=== PATIENT | male | born 1975 | race Caucasian/White ===

== ENCOUNTER 2019-04-20 14:47 | Emergency (ER) | payer OTHER ==
[~2019-04-20] VITALS: Ht 172.7 cm; Wt 100.0 kg
--- NOTE | 2019-04-20 15:29 | ED Upper Extremity ---
General Chief Complaint: Upper Extremity Stated Complaint: FALL LEFT ARM/SHOULDER/WRIST PAIN Nursing Triage Note: PT AMB TO TRIAGE WITH COMPLAINT OF LEFT SHOULDER AND ARM PAIN. STATES AT WORK HE FELL DOWN 4 STAIRS LANDING ON LEFT SIDE. DENIES HITTING HEAD OR LOC. Nursing Sepsis Screen: No Definite Risk Source: patient Exam Limitations: no limitations History of Present Illness Date Seen by Provider: Apr 20, 2019 Time Seen by Provider: 15:20 Initial Comments 43-year-old male that presents to the emergency department with left forearm and left wrist pain. Patient reports that he fell while working today after some stairs gave out on him about 12:00 this afternoon. Patient reports taken 2 Aleve at 12:30 that has improved his pain mildly. Patient reports that his left shoulder is a little sore but has free range of motion without increased pain and no abnormalities noted. Patient denies hitting his head or having loss of consciousness, patient denies having vision problems, neck pain, shortness of breath, nausea or vomiting. Onset: this afternoon Severity: mild Pain/Injury Location: left forearm Method of Injury: fell Modifying Factors: Improves With Immobilization; Worse With Movement; Improves With Pain Medication, Improves With Rest Allergies and Home Medications Allergies Coded Allergies: No Known Drug Allergies (Unverified , 04/20/19) Patient Home Medication List Home Medication List Reviewed: Yes Review of Systems Constitutional: no symptoms reported, see HPI EENTM: see HPI, no symptoms reported Respiratory: no symptoms reported, see HPI Cardiovascular: no symptoms reported, see HPI Gastrointestinal: no symptoms reported, see HPI Genitourinary: no symptoms reported, see HPI Musculoskeletal: other (left forearm and wrist pain) Skin: no symptoms reported, see HPI Psychiatric/Neurological: No Symptoms Reported, See HPI All Other Systems Reviewed Negative Unless Noted: Yes Past Dwlyvrt-Eekmno-Gpezlr Hx Past Med/Social Hx: Reviewed Nursing Past Med/Soc Hx Patient Social History Alcohol Use: Occasionally Uses Recreational Drug Use: No Type Used: Smokeless Tobacco Recent Foreign Travel: No Contact w/Someone Who Travel: No Recent Infectious Disease Expo: No Recent Hopitalizations: No Physical Abuse: No Sexual Abuse: No Mistreated: No Fear: No Immunizations Up To Date Tetanus Booster (TDap): Unknown PED Vaccines UTD: Yes Seasonal Allergies Seasonal Allergies: No Past Medical History Surgeries: Yes (CYST REMOVAL) Respiratory: No Cardiac: No Neurological: No Genitourinary: No Gastrointestinal: Yes Gastroesophageal Reflux Musculoskeletal: No Endocrine: No Cancer: No Psychosocial: No Integumentary: No Blood Disorders: No Physical Exam Vital Signs Vital Signs - First Documented 04/20/19 15:00 Temp 36.5 Pulse 81 Resp 20 B/P (MAP) 161/91 (114) Pulse Ox 98 O2 Delivery Room Air Capillary Refill : Less Than 3 Seconds Height, Weight, BMI Height: '" Weight: lbs. oz. kg; 33.00 BMI Method: General Appearance: WD/WN, no apparent distress HEENT: PERRL/EOMI, normal ENT inspection, TMs normal, pharynx normal Neck: non-tender, full range of motion, supple, normal inspection Cardiovascular: normal peripheral pulses, regular rate, rhythm, no edema, no gallop, no JVD, no murmur Respiratory: chest non-tender, lungs clear, normal breath sounds, no respiratory distress, no accessory muscle use Gastrointestinal: normal bowel sounds, non tender, soft, no pulsatile mass Back: normal inspection, no CVA tenderness, no vertebral tenderness Shoulder: normal inspection, non-tender, no evidence of injury, normal ROM Elbow/Forearm: normal inspection, non-tender (left forearm is tender, left elbow is nontender) Wrist: Yes normal inspection; No non-tender; Yes soft tissue tenderness Hand: normal inspection, non-tender Neurologic/Tendon: normal sensation, normal motor functions Neurologic/Psychiatric: lead blender II-XII nml as tested, no motor/sensory deficits, alert, normal mood/affect, oriented x 3 Skin: normal color, warm/dry Lymphatic: no adenopathy Progress/Results/Core Measures Results/Orders My Orders Orders - ROSSY MAXWELL Forearm, Left, 2 Views (04/20/19 15:21) Wrist, Left, 3 Views Or More (04/20/19 15:21) Vital Signs/I&O 04/20/19 04/20/19 15:00 16:01 Temp 36.5 36.5 Pulse 81 81 Resp 20 20 B/P (MAP) 161/91 (114) 145/90 (114) Pulse Ox 98 98 O2 Delivery Room Air Blood Pressure Mean: 114 POS Diagnostic Imaging Diagonstic Imaging: Xray Plain Films/CT/US/NM/MRI: forearm, other (wrist) Comments NAME: EMMETT SALDANA MED REC#: [id number] PT STATUS: REG ER : 1975 PHYSICIAN: ROSSY MAXWELL ADMIT DATE: 04/20/19/ER Draft POSDate of Exam:04/20/19 FOREARM, LEFT, 2 VIEWS INDICATION: Fall with left forearm pain. AP and lateral views of the left forearm are obtained. No fracture or acute bony abnormality is seen. IMPRESSION: Negative left forearm. Dictated on workstation # [id number] Dict: 04/20/19 1538 Trans: 04/20/19 1540 [id number] Interpreted by: TOBIAS DOWNING MD Electronically signed by: NAME: EMMETT SALDANA [facility] REC#: [id number] PT STATUS: REG ER : 1975 PHYSICIAN: ROSSY MAXWELL ADMIT DATE: 04/20/19/ER Draft POSDate of Exam:04/20/19 WRIST, LEFT, 3 VIEWS OR MORE INDICATION: Fall with left wrist pain. AP, oblique, and lateral views of the left wrist are obtained. FINDINGS: No fracture or acute bony abnormality is seen. Joint spaces appear unremarkable. IMPRESSION: Negative left wrist. Dictated on workstation # [id number] Dict: 04/20/19 1537 Trans: 04/20/19 1540 [id number] Interpreted by: TOBIAS DOWNING MD Electronically signed by: Reviewed: Reviewed by Me Departure Impression Primary Impression: Contusion of wrist Qualified Codes: S60.212A - Contusion of left wrist, initial encounter Additional Impression: Left forearm pain Disposition: 01 HOME, SELF-CARE Condition: Improved Departure-Patient Inst. Decision time for Depature: 15:50 Referrals: NO,LOCAL PHYSICIAN (PCP/Family) Primary Care Physician Patient Instructions: Wrist Sprain (DC) Add. Discharge Instructions: Tylenol up to 1000 mg every 8 hours and ibuprofen 600 mg every 8 hours for pain. You may use ice to the areas of pain for 20 minute intervals. Follow-up with primary care provider or occupational health if not better in 7- 10 days Return for any emergent concerns. All discharge instructions reviewed with patient and/or family. Voiced understanding. ROSSY MAXWELL Apr 20, 2019 15:29 POS
--- NOTE | 2019-04-20 15:40 | Diagnostic Imaging Report ---
INDICATION: Fall with left forearm pain. AP and lateral views of the left forearm are obtained. No fracture or acute bony abnormality is seen. IMPRESSION: Negative left forearm. Dictated by: Dictated on workstation # [id number]
--- NOTE | 2019-04-20 15:40 | Diagnostic Imaging Report ---
INDICATION: Fall with left wrist pain. AP, oblique, and lateral views of the left wrist are obtained. FINDINGS: No fracture or acute bony abnormality is seen. Joint spaces appear unremarkable. IMPRESSION: Negative left wrist. Dictated by: Dictated on workstation # [id number]
[2019-04-20 16:01] VITALS: BP 145/90
== END 2019-04-20 16:01 | disposition home or self-care (01) ==
LOC: EDUNIT# 14:47 → ER 14:52
DX: S60.212A Contusion of left wrist, initial encounter (principal); K21.9 Gastro-esophageal reflux disease without esophagitis; W10.9XXA Fall (on) (from) unspecified stairs and steps, initial encounter; Y92.59 Other trade areas as the place of occurrence of the external cause
CPT/HCPCS: 73090; 73110

== ENCOUNTER 2020-01-11 14:01 | Emergency (ER) | payer SELFPAY ==
[~2020-01-11] VITALS: Ht 170 cm; Wt 109.3 kg
--- NOTE | 2020-01-11 14:09 | ED Chest Pain ---
General Stated Complaint: SOA;CHEST PAIN Source: patient Exam Limitations: no limitations History of Present Illness Date Seen by Provider: Jan 11, 2020 Time Seen by Provider: 14:09 Initial Comments 44-year-old male presents with parasternal chest pain. He reports that it started around 7:00 this morning. He gets worse if he bends forward or moves his arm. Patient reports his been constant but has eased up some. Patient reports he is on a tractor when it happened. Patient thinks he has a pulled muscle but his coworkers were concerned about a possible heart attack. He was given an aspirin. Patient was then sent to the ER for further evaluation. He denies any nausea vomiting diaphoresis. Patient is tender across his chest on palpation. Patient does not report any radiation of the pain. Allergies and Home Medications Allergies Coded Allergies: Penicillins (Verified Allergy, Unknown, 01/11/20) Home Medications No Active Prescriptions or Reported Meds Patient Home Medication List Home Medication List Reviewed: Yes Review of Systems Review of Systems Constitutional: No chills, No fever EENTM: No Symptoms Reported Respiratory: Denies Cough, Denies Shortness of Air, Denies SOA With Exertion, Denies SOA at Rest, Denies Wheezing Cardiovascular: Chest Pain; Denies Edema, Denies Lightheadedness, Denies Palpitations, Denies Syncope Gastrointestinal: Denies Abdominal Pain, Denies Diarrhea, Denies Nausea, Denies Vomiting Musculoskeletal: see HPI Skin: no symptoms reported Psychiatric/Neurological: No Symptoms Reported Endocrine: No Symptoms Reported Past Eyhpszp-Bmuifp-Jbliqg Hx Past Med/Social Hx: Reviewed Nursing Past Med/Soc Hx Patient Social History Type Used: Smokeless Tobacco Recent Foreign Travel: No Contact w/Someone Who Travel: No Recent Hopitalizations: No Immunizations Up To Date Tetanus Booster (TDap): Unknown PED Vaccines UTD: Yes Seasonal Allergies Seasonal Allergies: No Past Medical History Surgeries: Yes (CYST REMOVAL) Respiratory: No Cardiac: No Neurological: No Genitourinary: No Gastrointestinal: Yes Gastroesophageal Reflux Musculoskeletal: No Endocrine: No Cancer: No Psychosocial: No Integumentary: No Blood Disorders: No Physical Exam Vital Signs Vital Signs - First Documented 01/11/20 14:17 Temp 36.9 Pulse 87 Resp 16 B/P (MAP) 152/95 (114) Pulse Ox 96 O2 Delivery Room Air Capillary Refill : Height, Weight, BMI Height: '" Weight: lbs. oz. kg; 33.00 BMI Method: General Appearance: No Apparent Distress, WD/WN HEENT: PERRL/EOMI Neck: Full Range of Motion, Non Tender Respiratory: Chest Non Tender, Lungs Clear, Normal Breath Sounds, Other (tenderness to chest wall with palpation parasternally bilateral) Cardiovascular: Regular Rate, Rhythm, No Edema Gastrointestinal: Non Tender, Soft Neurologic/Psychiatric: Alert, Oriented x3, Normal Mood/Affect, heel stainer II-XII Norm as Tested Skin: Normal Color, Warm/Dry Progress/Results/Core Measures Results/Orders Lab Results Laboratory Tests Test 01/11/20 14:11 Range/Units White Blood Count 8.1 4.3-11.0 10^3/uL Red Blood Count 5.53 4.35-5.85 10^6/uL Hemoglobin 16.3 13.3-17.7 G/DL Hematocrit 47 40-54 % Mean Corpuscular Volume 85 80-99 FL Mean Corpuscular Hemoglobin 30 25-34 PG Mean Corpuscular Hemoglobin Concent 35 32-36 G/DL Red Cell Distribution Width 13.3 10.0-14.5 % Platelet Count 286 130-400 10^3/uL Mean Platelet Volume 11.6 H 7.4-10.4 FL Neutrophils (%) (Auto) 66 42-75 % Lymphocytes (%) (Auto) 24 12-44 % Monocytes (%) (Auto) 8 0-12 % Eosinophils (%) (Auto) 2 0-10 % Basophils (%) (Auto) 0 0-10 % Neutrophils # (Auto) 5.3 1.8-7.8 X 10^3 Lymphocytes # (Auto) 1.9 1.0-4.0 X 10^3 Monocytes # (Auto) 0.7 0.0-1.0 X 10^3 Eosinophils # (Auto) 0.1 0.0-0.3 10^3/uL Basophils # (Auto) 0.0 0.0-0.1 10^3/uL Prothrombin Time 12.9 12.2-14.7 SEC INR Comment 0.9 0.8-1.4 Activated Partial Thromboplast Time 29 24-35 SEC Sodium Level 139 135-145 MMOL/L Potassium Level 4.2 3.6-5.0 MMOL/L Chloride Level 106 98-107 MMOL/L Carbon Dioxide Level 24 21-32 MMOL/L Anion Gap 9 5-14 MMOL/L Blood Urea Nitrogen 8 7-18 MG/DL Creatinine 1.02 0.60-1.30 MG/DL Estimat Glomerular Filtration Rate > 60 BUN/Creatinine Ratio 8 Glucose Level 90 70-105 MG/DL Calcium Level 9.3 8.5-10.1 MG/DL Corrected Calcium 8.5-10.1 MG/DL Magnesium Level 2.3 1.6-2.4 MG/DL Total Bilirubin 0.5 0.1-1.0 MG/DL Aspartate Amino Transf (AST/SGOT) 31 5-34 U/L Alanine Aminotransferase (ALT/SGPT) 51 0-55 U/L Alkaline Phosphatase 47 40-136 U/L Myoglobin 33.0 10.0-92.0 NG/ML Troponin I < 0.028 <0.028 NG/ML B-Type Natriuretic Peptide < 10.0 <100.0 PG/ML Total Protein 8.1 6.4-8.2 GM/DL Albumin 4.6 H 3.2-4.5 GM/DL My Orders Orders - WRIGHT,NINA L DO Cbc With Automated Diff (01/11/20 14:09) Magnesium (01/11/20 14:09) Chest 1 View, Ap/Pa Only (01/11/20 14:09) Ekg Tracing (01/11/20 14:09) Comprehensive Metabolic Panel (01/11/20 14:09) Myoglobin Serum (01/11/20 14:09) Protime With Inr (01/11/20 14:09) Partial Thromboplastin Time (01/11/20 14:09) O2 (01/11/20 14:09) Monitor-Rhythm Ecg Trace Only (01/11/20 14:09) Ed Iv/Invasive Line Start (01/11/20 14:09) BNP (01/11/20 14:09) Troponin I (01/11/20 14:09) Ketorolac Injection (Toradol Injection) (01/11/20 14:10) Vital Signs/I&O 01/11/20 01/11/20 14:17 14:17 Temp 36.9 Pulse 87 Resp 16 B/P (MAP) 152/95 (114) Pulse Ox 96 O2 Delivery Room Air Progress Progress Note : Time: 15:16 Progress Note Patient with negative EKG labs and negative troponin. Patient is chest pain started at 7 AM so finally 7 hours after chest pain started with no chest troponin change or EKG changes. Patient symptoms are very consistent with a musculoskeletal pain getting worse with movement palpation. Patient is asking to be discharged home. He has not felt his heart and is only here to appease his work. Patient is discharged home in stable condition Initial ECG Impression Date: Jan 11, 2020 Initial ECG Impression Time: 15:16 Initial ECG Rate: 86 Initial ECG Rhythm: Normal Sinus Initial ECG Intervals: Normal Initial ECG Impression: Normal Diagnostic Imaging Diagonstic Imaging: Xray Plain Films/CT/US/NM/MRI: chest Comments [facility] [place] [place] NAME: EMMETT SALDANA MED REC#: [id number] PT STATUS: REG ER : 1975 PHYSICIAN: NINA WRIGHT DO ADMIT DATE: 01/11/20/ER Draft Date of Exam:01/11/20 CHEST 1 VIEW, AP/PA ONLY INDICATION: Chest pain and dyspnea TECHNIQUE: Single AP view of the chest is obtained. COMPARISON: No previous study is available for comparison at this time. FINDINGS: Heart size and pulmonary vasculature are within normal limits, and the lungs are clear, bilaterally. IMPRESSION: Unremarkable chest. Departure Impression Primary Impression: Chest wall pain Disposition: 01 HOME, SELF-CARE Condition: Stable Departure-Patient Inst. Referrals: NO,LOCAL PHYSICIAN (PCP/Family) Primary Care Physician Patient Instructions: Chest Pain That Is Not Caused by the Heart (DC) Add. Discharge Instructions: Follow-up with your primary care provider in a couple days for recheck in today symptoms and possible cardiology consult if they feel warranted Tylenol or ibuprofen as needed for pain 4% topical lidocaine with menthol as directed on package as needed for pain Scripts No Active Prescriptions or Reported Meds NINA WRIGHT DO Jan 11, 2020 14:09
[2020-01-11] MEDS ORDERED: KETOROLAC 30 MG/ML VIAL IVP STA (14:10)
[2020-01-11 14:20] LABS: BASOPHILS % (AUTO) 0 % (0-10); EOSINOPHILS # (AUTO) 0.1 10^3/uL (0.0-0.3); EOSINOPHILS % (AUTO) 2 % (0-10); HEMATOCRIT 47 % (40-54); HEMOGLOBIN 16.3 G/DL (13.3-17.7); LYMPHOCYTES # (AUTO) 1.9 X 10^3 (1.0-4.0); LYMPHOCYTES % (AUTO) 24 % (12-44); MEAN CORPUSCULAR HEMOGLOBIN 30 PG (25-34); MEAN CORPUSCULAR HGB CONC 35 G/DL (32-36); MEAN CORPUSCULAR VOLUME 85 FL (80-99); MEAN PLATELET VOLUME 11.6 FL (7.4-10.4); MONOCYTES # (AUTO) 0.7 X 10^3 (0.0-1.0); MONOCYTES % (AUTO) 8 % (0-12); NEUTROPHILS # (AUTO) 5.3 X 10^3 (1.8-7.8); NEUTROPHILS % (AUTO) 66 % (42-75); PLATELET COUNT 286 10^3/uL (130-400); RED CELL DISTRIBUTION WIDTH 13.3 % (10.0-14.5); WHITE BLOOD COUNT 8.1 10^3/uL (4.3-11.0)
[2020-01-11 14:30] LABS: INR 0.9 (0.8-1.4); PROTHROMBIN TIME PATIENT 12.9 SEC (12.2-14.7)
--- NOTE | 2020-01-11 14:37 | Diagnostic Imaging Report ---
INDICATION: Chest pain and dyspnea TECHNIQUE: Single AP view of the chest is obtained. COMPARISON: No previous study is available for comparison at this time. FINDINGS: Heart size and pulmonary vasculature are within normal limits, and the lungs are clear, bilaterally. IMPRESSION: Unremarkable chest. Dictated by: Dictated on workstation # [id number]
[2020-01-11 14:47] LABS: ALANINE AMINOTRANSFERASE 51 U/L (0-55); ALBUMIN 4.6 GM/DL (3.2-4.5); ALKALINE PHOSPHATASE 47 U/L (40-136); BILIRUBIN,TOTAL 0.5 MG/DL (0.1-1.0); BUN/CREATININE RATIO 8; CALCIUM 9.3 MG/DL (8.5-10.1); CARBON DIOXIDE 24 MMOL/L (21-32); CHLORIDE 106 MMOL/L (98-107); CREATININE SERUM 1.02 MG/DL (0.60-1.30); GFR ESTIMATED > 60; GLUCOSE 90 MG/DL (70-105); MAGNESIUM 2.3 MG/DL (1.6-2.4); POTASSIUM 4.2 MMOL/L (3.6-5.0); SODIUM 139 MMOL/L (135-145); TOTAL PROTEIN 8.1 GM/DL (6.4-8.2)
--- OUTSIDE RECORDS SUMMARY | 2020-01-11 14:51 | XMS REPORT | Continuity of Care Document ---
Author Organization Unknown Address Unknown Phone Unavailable Allergies Active Description Code Type Severity Reaction Onset Reported/Identified Relationship to Patient Clinical Status Yes No Known Drug Allergies [id number] Drug Allergy Unknown N/A 04/20/2019 Medications There is no data. Problems Date Dx Coded Attending Type Code Diagnosis Diagnosed By 04/20/2019 ROSSY MAXWELLP Ot K21.9 GASTRO-ESOPHAGEAL REFLUX DISEASE WITHOUT 04/20/2019 ROSSY MAXWELLP Ot M79.632 PAIN IN LEFT FOREARM 04/20/2019 ROSSY MAXWELLP Ot S60.212A CONTUSION OF LEFT WRIST, INITIAL ENCOUNT 04/20/2019 ROSSY MAXWELLP Ot W10.9XXA FALL (ON) (FROM) UNSPECIFIED STAIRS AND 04/20/2019 ALISSA, ROSSY PACHECOP Ot Y92.59 [facility] 04/26/2019 ROSSY MAXWELLP Ot K21.9 GASTRO-ESOPHAGEAL REFLUX DISEASE WITHOUT 04/26/2019 ALISSA, ROSSY PACHECOP Ot M79.632 PAIN IN LEFT FOREARM 04/26/2019 ROSSY MAXWELLP Ot S60.212A CONTUSION OF LEFT WRIST, INITIAL ENCOUNT 04/26/2019 ALISSA, ROSSY PACHECOP Ot W10.9XXA FALL (ON) (FROM) UNSPECIFIED STAIRS AND 04/26/2019 ALISSA, ROSSY PACHECOP Ot Y92.59 [facility] [address] Procedures There is no data. Results Test Result Range Complete blood count (CBC) with automate d white blood cell (WBC) differential - 01/11/20 14:11 Blood leukocytes automated count (number/volume) 8.1 10*3/uL 4.3-11.0 Blood erythrocytes automated count (number/volume) 5.53 10*6/uL 4.35-5.85 Venous blood hemoglobin measurement (mass/volume) 16.3 g/dL 13.3-17.7 Blood hematocrit (volume fraction) 47 % 40-54 Automated erythrocyte mean corpuscular volume 85 [ foz_us] 80-99 Automated erythrocyte mean corpuscular h emoglobin (mass per erythrocyte) 30 pg 25-34 Automated erythrocyte mean corpuscular h emoglobin concentration measurement (mass/volume) 35 g/dL 32-36 Automated erythrocyte distribution width ratio 13. 3 % 10.0- 14.5 Automated blood platelet count (count/volume) 286 10*3/uL 130-400 Automated blood platelet mean volume measurement 11.6 [foz_us] 7.4-10.4 Automated blood neutrophils/100 leukocytes 66 % 42-75 Automated blood lymphocytes/100 leukocytes 24 % 12-44 Blood monocytes/100 leukocytes 8 % 0-12 Automated blood eosinophils/100 leukocytes 2 % 0-10 Automated blood basophils/100 leukocytes 0 % 0-10 Blood neutrophils automated count (number/volume) 5.3 10*3 1.8-7.8 Blood lymphocytes automated count (number/volume) 1.9 10*3 1.0-4.0 Blood monocytes automated count (number/volume) 0. 7 10*3 0.0-1.0 Automated eosinophil count 0.1 10*3/uL 0 .0-0.3 Automated blood basophil count (count/volume) 0.0 10*3/uL 0.0-0.1 PT panel in platelet poor plasma by coag ulation assay - 01/11/20 14:11 Prothrombin time (PT) in platelet poor plasma by coagu lation assay 12.9 s 12.2-14.7 INR in platelet poor plasma or blood by coagulation as say 0.9 0.8-1.4 Activated partial thromboplastin time (a PTT) in platelet poor plasma bycoagulation assay - 01/11/20 14:11 Activated partial thromboplastin time (a PTT) in platelet poor plasma bycoagulation assay 29 s 24-35 Serum or plasma troponin i.cardiac measu rement (mass/volume) - 01/11/20 14:11 Serum or plasma troponin i.cardiac measurement (mass/v olume) < ng/mL <0.028 Comprehensive metabolic panel - 01/11/20 14:11 Serum or plasma sodium measurement (moles/volume) 139 mmol/L 135-145 Serum or plasma potassium measurement (moles/volume) 4.2 mmol/L 3.6-5.0 Serum or plasma chloride measurement (moles/volume) 106 mmol/L 98-107 Carbon dioxide 24 mmol/L 21-32 Serum or plasma anion gap determination (moles/volume) 9 mmol/L 5-14 Serum or plasma urea nitrogen measurement (mass/volume ) 8 mg/dL 7-18 Serum or plasma creatinine measurement (mass/volume) 1.02 mg/dL 0.60-1.30 Serum or plasma urea nitrogen/creatinine mass ratio 8 NRG Serum or plasma creatinine measurement w ith calculation of estimated glomerular filtration rate > NRG Serum or plasma glucose measurement (mass/volume) 90 mg/dL 70-105 Serum or plasma calcium measurement (mass/volume) 9.3 mg/dL 8.5-10.1 Serum or plasma total bilirubin measurement (mass/volu me) 0.5 mg/dL 0.1-1.0 Serum or plasma alkaline phosphatase juancarlos surement (enzymatic activity/volume) 47 U/L 40-136 Serum or plasma aspartate aminotransfera se measurement (enzymatic activity/volume) 31 U/L 5-34 Serum or plasma alanine aminotransferase measurement (enzymatic activity/volume) 51 U/L 0-55 Serum or plasma protein measurement (mass/volume) 8.1 g/dL 6.4-8.2 Serum or plasma albumin measurement (mass/volume) 4.6 g/dL 3.2-4.5 Magnesium - 01/11/20 14:11 Magnesium 2.3 mg/dL 1.6-2.4 Myoglobin, serum - 01/11/20 14:11 Myoglobin, serum 33.0 ng/mL 10.0-92.0 Serum or plasma lithium measurement (mol es/volume) - 01/11/20 14:11 BNP PT < 10.0 <100.0 Encounters ACCT No. Visit Date/Time Discharge Status Pt. Type Provider Facility Loc./Unit Complaint [id number] 01/11/2020 13:30:00 [id number] 04/20/2019 14:52:00 019 16:01:00 DIS Emergency ROSSY MAXWELL [facility] ER FALL LEFT ARM/SHOULDER/ WRIST PAIN [id number] 01/11/2020 14:02:[address] Emergency NINA WRIGHT DO [facility] ER SOA;CHEST PAIN
[2020-01-11 15:51] VITALS: BP 125/60
== END 2020-01-11 15:51 | disposition home or self-care (01) ==
LOC: EDUNIT# 14:01 → ER 14:02
DX: R07.89 Other chest pain (principal); Z88.0 Allergy status to penicillin
CPT/HCPCS: 36415; 71045; 80053; 83735; 83874; 83880; 84484; 85025; 85610; 85730; 93005; 93041